=== PATIENT | male | born 1980 | race Caucasian/White ===

== ENCOUNTER 2019-02-21 08:49 | Emergency (ER) | payer MEDICAID, OTHER, SELFPAY ==
[~2019-02-21] VITALS: Ht 182.9 cm; Wt 82.4 kg
[2019-02-21 08:52] VITALS: BP 142/78
--- NOTE | 2019-02-21 09:03 | NUR ---
Pt ambulates with steady gait and balance from triage to room. KATEN.
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
--- NOTE | 2019-02-21 10:17 | NUR ---
Pt gone at CT at this time.
== END 2019-02-21 11:10 | disposition home or self-care (01) ==
LOC: ED 09:07
DX: S00.12XA Contusion of left eyelid and periocular area, initial encounter (principal); X58.XXXA Exposure to other specified factors, initial encounter; Y93.89 Activity, other specified; Y92.89 Other specified places as the place of occurrence of the external cause; Y99.8 Other external cause status
CPT/HCPCS: 70450; 70486; 72125; 99284